=== PATIENT | male | born 1995 | race Caucasian/White ===

== ENCOUNTER 2016-12-23 10:26 | Emergency (ER) | payer BC ==
[2016-12-23] MEDS ORDERED: 0.9 % SODIUM CHLORIDE 1,000 ML BAG IV ONE ×2 (10:59→11:57)
[2016-12-23] MEDS ORDERED: ONDANSETRON HCL IV 4 MG/2 ML VIAL IV ONE (10:59)
--- NOTE | 2016-12-23 11:04 | Emergency Department Record ---
History of Present Illness - General Chief Complaint: General Stated Complaint: COLD SWEATS, SHAKING, ALCOHOL, ABD PAIN Time Seen by Provider: 12/23/16 10:56 Source: Patient Mode of Arrival: Ambulatory Limitations: No limitations - History of Present Illness Initial Comments: The patient is here due to the acute onset of nausea, AP and vomiting over the last 2 hours. The patient had a lot of alcohol to drink last evening and when he got up this AM began to feel very ill. He denies any previous illnesses or injuries. There is no back pain, CP, SOB, fever, or chills. The patient has no hx of similar issues. MD Complaint: Abdominal pain Onset/Timin -: Hour(s) - Related Data Home Medications Medication Instructions Recorded Confirmed Last Taken No Home Med [NO HOME MEDS] 12/23/16 12/23/16 Unknown Allergies Allergy/AdvReac Type Severity Reaction Status Date / Time azithromycin [From Zithromax] Allergy HIVES Verified 12/23/16 10:41 Travel Screening - Travel/Exposure Within Last 30 Days Have you traveled within the last 30 days?: No - Travel/Exposure Within Last Year Have you traveled outside the [place] in the last year?: No - Additonal Travel Details Have you been exposed to anyone with a communicable illness?: No - Travel Symptoms Symptom Screening: None Review of Systems Constitutional: Denies: Chills, Fever Eyes: Denies: Eye discharge ENT: Denies: Congestion Respiratory: Denies: Cough Past Medical History - SOCIAL HISTORY Smoking Status: Current every day smoker Alcohol Use: Rare Drug Use Detail:: Marijuana - RESPIRATORY Hx Respiratory Disorders: No - CARDIOVASCULAR Hx Cardio Disorders: No - NEURO Hx Neuro Disorders: No - GI Hx GI Disorders: No - Hx Genitourinary Disorders: No - ENDOCRINE Hx Endocrine Disorders: No - MUSCULOSKELETAL Hx Musculoskeletal Disorders: No - PSYCH Hx Psych Problems: No - HEMATOLOGY/ONCOLOGY Hx Hematology/Oncology Disorders: No Family Medical History Any Significant Family History?: No Physical Exam - General General Appearance: Alert, Oriented x3, Cooperative, No acute distress - Head Head exam: Atraumatic, Normocephalic, Normal inspection - Eye Eye exam: Normal appearance, PERRL - ENT Throat exam: Normal inspection. negative: Tonsillar erythema, Tonsillar exudate - Neck Neck exam: Normal inspection, Full ROM. negative: Tenderness - Respiratory Respiratory exam: Normal lung sounds bilaterally. negative: Respiratory distress - Cardiovascular Cardiovascular Exam: Regular rate, Normal rhythm, Normal heart sounds - GI/Abdominal GI/Abdominal exam: Soft, Tenderness (There is significant tenderness to the RUQ and Epigastric area.). negative: Distended, Rigid - Extremities Extremities exam: Normal inspection, Full ROM, Normal capillary refill. negative: Tenderness - Neurological Neurological exam: Alert, Normal gait. negative: Abnormal gait, Motor sensory deficit Course Vital Signs 12/23/16 10:42 Temperature 98 F Pulse Rate 71 Respiratory 24 Rate Blood Pressure 141/69 - Reevaluation(s) Reevaluation #1: The patient is doing better but is still having upper abdominal pain. He is feeling some better with no nausea, back pain, HERNANDEZ or CP. 12/23/16 13:06 Reevaluation #2: The patient is doing better at this time but he is still having upper abdominal pain. He is still cleaner tube in the RUQ. I did explain to him the CT does demonstrate a Gallbladder issue. We will consult Gen surg. 12/23/16 15:26 Reevaluation #3: I did discuss the case with Dr. Dalton and he accepts the patient to [facility] for surgery tomorrow. 12/23/16 15:49 Medical Decision Making - Data Complexity MDM Data: Labs Ordered and/or Reviewed, X-Ray Ordered and/or Reviewed - Lab Data Result diagrams: 12/23/16 11:10 12/23/16 11:10 - Radiology Data Radiology results: Report reviewed (CT: Prob acute cholycystitis.) Disposition Disposition: Transfer Clinical Impression: Acute cholecystitis Disposition: Acute Care Hospital Transfer Transfer To: [facility] Reason For Transfer: Acure Cholecystitis Accepting Physician: Sha Time Discussed w/Accepting Physician: 15:51 Condition: (2) Stable Forms: Patient Portal Access Time of Disposition: 15:51
[2016-12-23 11:30] LABS: HEMATOCRIT 47.8 % (42.0-52.0); HEMOGLOBIN 16.6 gm/dl (14.0-18.0); MEAN CELL VOLUME 86.9 fl (81-97); MEAN CORPUSCULAR HEMOGLOBIN 30.2 pg (27-33); MEAN CORPUSCULAR HGB CONC 34.7 g/dl (32-36); MEAN PLATELET VOLUME 10.1 fl (7.4-10.4); PLATELET COUNT 277 K/uL (130-400); RED CELL DISTRIBUTION WIDTH 12.7 % (11.5-14.5); WHITE BLOOD COUNT W/O DIFF 14.4 K/uL (4.2-12.2)
[2016-12-23 11:42] LABS: ALKALINE PHOSPHATASE 138 U/L (38-126); ALT/SGPT 30 U/L (21-72); ANION GAP 14.8 (7-16); AST/SGOT 32 U/L (17-59); BILIRUBIN,TOTAL 1.03 mg/dL (0.2-1.3); BLOOD UREA NITROGEN 11 mg/dL (9-20); CARBON DIOXIDE 21.2 mmol/L (22-30); CREATININE 0.9 mg/dL (0.66-1.25); EST GLOMERULAR FILTRATION RATE > 60 ml/min; GLUCOSE,RANDOM 117 mg/dL (70-110); LIPASE 59 U/L (23-300)
[2016-12-23 12:54] LABS: URINE APPEARANCE SL CLOUDY; URINE BILIRUBIN NEGATIVE (NEGATIVE); URINE BLOOD NEGATIVE (NEGATIVE); URINE COLOR YELLOW; URINE GLUCOSE (UA) NEGATIVE (NEGATIVE); URINE KETONE 40 mg/dL (NEGATIVE); URINE LEUKOCYTE ESTERASE NEGATIVE (NEGATIVE); URINE NITRITE NEGATIVE (NEGATIVE); URINE PROTEIN NEGATIVE (NEGATIVE); URINE UROBILINOGEN 0.2 E.U./dL (0.20 - 1.00)
[2016-12-23] MEDS ORDERED: MAGNESIUM HYDROXIDE/AL HYDROX 30 ML, LIDOCAINE VISC 2% 200 MG PO ONE ×2 (13:01)
[2016-12-23 13:24] LABS: AMPHETAMINE SCREEN URINE NOT DETECTED; BARBITURATE SCREEN URINE NOT DETECTED; BENZODIAZEPINE SCREEN URINE NOT DETECTED; COCAINE SCREEN URINE NOT DETECTED; METHADONE SCREEN URINE NOT DETECTED; METHAMPHETAMINE SCREEN NOT DETECTED; OPIATE SCREEN URINE NOT DETECTED; OXYCODONE SCREEN URINE NOT DETECTED; PHENCYCLIDINE SCREEN URINE NOT DETECTED; PROPOXYPHENE SCREEN URINE NOT DETECTED; THC SCREEN URINE DETECTED; TRICYCLIC ANTIDEPRESSANT SCRN NOT DETECTED
[2016-12-23] MEDS ORDERED: HYDROMORPHONE HCL 1 MG/ML CPJ IVP ONE ×2 (13:39→15:18)
[2016-12-23] MEDS ORDERED: ONDANSETRON HCL IV 4 MG/2 ML VIAL IVP ONE (13:39)
[2016-12-23] MEDS ORDERED: ERTAPENEM SODIUM 1 G in 0.9 % SODIUM CHLORIDE 100ML 100 ML IVPB ONE (15:32)
== END 2016-12-23 18:09 | disposition short-term general hospital (02) ==
LOC: ER 10:26
DX: K81.0 Acute cholecystitis (principal); R11.2 Nausea with vomiting, unspecified; R10.11 Right upper quadrant pain
CPT/HCPCS: 99285 ×2; 96376; 96365; 96375; 96361; 83690; 80076; 80048; 36416; 82948; 81003; 80305; 85027; 74177; Q9967; J1335; J2405; J1170; J7030